=== PATIENT | female | born 1980 | race American Indian/Alaskan Native ===

== ENCOUNTER 2017-03-30 23:53 | Emergency (ER) | payer MEDICARE ==
[2017-03-31 02:25] LABS: Basophils % (Auto) 0.7 % (0.0-1.8); Eosinophils % (Auto) 0.9 % (0.0-4.3); Hematocrit 33.7 % (30.3-42.9); Hemoglobin 11.4 gm/dl (10.1-14.3); Mean Corpuscular HGB Conc 34 % (30-34); Mean Corpuscular Hemoglobin 28 pg (28-32); Mean Corpuscular Volume 84 fl (79-97); Platelet Count 224 K/mm3 (140-440); Red Cell Distribution Width 14.6 % (13.2-15.2); White Blood Count 7.1 K/mm3 (4.5-11.0)
[2017-03-31 02:45] LABS: Anion Gap 21 mmol/L; BUN/Creatinine Ratio 21.25; Blood Urea Nitrogen 17 mg/dL (7-17); Calcium 8.5 mg/dL (8.4-10.2); Carbon Dioxide 24 mmol/L (22-30); Glucose 125 mg/dL (65-100); Sodium 129 mmol/L (137-145)
[2017-03-31] MEDS ORDERED: K-DUR PO ONE (03:14)
[2017-03-31 04:03] LABS: Urine Drugs of Abuse Note Disclamer
[2017-03-31 04:25] LABS: Bilirubin,Urine NEG (Negative); Blood,Urine LG (Negative); Ketones,Urine NEG (Negative); Leukocyte Esterase,Urine NEG (Negative); Nitrite,Urine NEG (Negative); Protein,Urine <15 mg/dL mg/dL (Negative); Urobilinogen,Urine < 2.0 mg/dL (<2.0)
[2017-03-31 04:41] LABS: RBC,Urine < 1.0 /HPF (0.0-6.0)
[2017-03-31 04:46] LABS: Magnesium 1.6 mg/dL (1.7-2.3)
[2017-03-31] MEDS ORDERED: MAGNESIUM SULFATE 2GM/50ML 2 GM/50 ML BAG IV ONE (06:43)
--- NOTE | 2017-03-31 06:59 | Emergency Department Report ---
HPI - General Chief Complaint: Psych Time Seen by Provider: 03/31/17 06:42 - HPI HPI: Room 17 The patient is a 36-year-old female presenting with a chief complaint of psychosis. The patient is a poor historian and exhibits tangential speaking at times inappropriate responses at others. Patient states she came to the hospital because she was trying to get away from the house. Patient denies suicidal or homicidal ideation. Patient denies auditory or visual hallucinations Location: Mental state Duration: Unknown Quality: Disorganized Severity: Moderate Modifying factors: [see above] Context: [see above] Mode of transportation: [not driving] ED Past Medical Hx - Past Medical History Previous Medical History?: No Hx Congestive Heart Failure: Yes Hx Psychiatric Treatment: Yes (psychosis) - Surgical History Past Surgical History?: No Additional Surgical History: Oral surgery - Family History Family history: no significant - Social History Smoking Status: Current Every Day Smoker Substance Use Type: Alcohol, Cocaine ED Review of Systems ROS: Stated complaint: BLEEDING Other details as noted in HPI Comment: All other systems reviewed and negative Constitutional: denies: chills, fever Eyes: denies: eye pain, eye discharge, vision change ENT: denies: ear pain, throat pain Respiratory: denies: cough, shortness of breath, wheezing Cardiovascular: denies: chest pain, palpitations Endocrine: no symptoms reported Gastrointestinal: denies: abdominal pain, nausea, diarrhea Genitourinary: denies: urgency, dysuria, discharge Musculoskeletal: denies: back pain, joint swelling, arthralgia Skin: denies: rash, lesions Neurological: denies: headache, weakness, paresthesias Psychiatric: denies: auditory hallucinations, visual hallucinations, homicidal thoughts, suicidal thoughts Hematological/Lymphatic: denies: easy bleeding, easy bruising Physical Exam - Physical Exam Vital Signs: Vital Signs 03/31/17 00:12 Temperature 98.2 F Pulse Rate 88 Respiratory 18 Rate Blood Pressure 132/80 O2 Sat by Pulse 99 Oximetry Physical Exam: GENERAL: The patient is well-developed well-nourished female sleeping on stretcher not appearing to be in acute distress.. Easily awakened HEENT: Normocephalic. Atraumatic. Extraocular motions are intact. Patient has moist mucous membranes. NECK: Supple. Trachea midline CHEST/LUNGS: Clear to auscultation. There is no respiratory distress noted. HEART/CARDIOVASCULAR: Regular. There is no tachycardia. There is no gallop rub or murmur. ABDOMEN: Abdomen is soft, nontender. Patient has normal bowel sounds. There is no abdominal distention. SKIN: There is no rash. There is no edema. There is no diaphoresis. NEURO: The patient is awake and alert. The patient is cooperative. The patient has normal speech. Moves all extremities well MUSCULOSKELETAL: There is no evidence of acute injury. ED Course Vital Signs 03/31/17 00:12 Temperature 98.2 F Pulse Rate 88 Respiratory 18 Rate Blood Pressure 132/80 O2 Sat by Pulse 99 Oximetry ED Medical Decision Making - Lab Data Result diagrams: 03/31/17 02:11 03/31/17 02:11 Laboratory Tests 03/31/17 03/31/17 03/31/17 02:11 02:11 02:11 WBC RBC Hgb Hct MCV MCH MCHC RDW Plt Count Lymph % (Auto) [place] % (Auto) Eos % (Auto) Baso % (Auto) Lymph # [place] # Eos # Baso # Seg Neutrophils % Seg Neutrophils # Sodium 129 L Potassium 3.0 L Chloride 87.0 L Carbon Dioxide 24 Anion Gap 21 BUN 17 Creatinine 0.8 Estimated GFR > 60 BUN/Creatinine Ratio 21.25 Glucose 125 H Calcium 8.5 Magnesium Total Creatine Kinase HCG, Qual Negative Urine Color Urine Turbidity Urine pH Ur Specific Radiant Urine Protein Urine Glucose (UA) Urine Ketones Urine Blood Urine Nitrite Urine Bilirubin Urine Urobilinogen Ur Leukocyte Esterase Urine WBC (Auto) Urine RBC (Auto) U Epithel Cells (Auto) Amorphous Crystals Salicylates Urine Opiates Screen Urine Methadone Screen Acetaminophen Ur Barbiturates Screen Ur Phencyclidine Scrn Ur Amphetamines Screen U Benzodiazepines Scrn Urine Cocaine Screen U Marijuana (THC) Screen Drugs of Abuse Note Plasma/Serum Alcohol < 0.01 03/31/17 03/31/17 03/31/17 02:11 02:11 02:11 WBC 7.1 RBC 4.00 Hgb 11.4 Hct 33.7 MCV 84 MCH 28 MCHC 34 RDW 14.6 Plt Count 224 Lymph % (Auto) 30.8 [place] % (Auto) 10.0 H Eos % (Auto) 0.9 Baso % (Auto) 0.7 Lymph # 2.2 [place] # 0.7 Eos # 0.1 Baso # 0.0 Seg Neutrophils % 57.6 Seg Neutrophils # 4.1 Sodium Potassium Chloride Carbon Dioxide Anion Gap BUN Creatinine Estimated GFR BUN/Creatinine Ratio Glucose Calcium Magnesium 1.60 L Total Creatine Kinase 808 H HCG, Qual Urine Color Urine Turbidity Urine pH Ur Specific Radiant Urine Protein Urine Glucose (UA) Urine Ketones Urine Blood Urine Nitrite Urine Bilirubin Urine Urobilinogen Ur Leukocyte Esterase Urine WBC (Auto) Urine RBC (Auto) U Epithel Cells (Auto) Amorphous Crystals Salicylates < 0.3 L Urine Opiates Screen Urine Methadone Screen Acetaminophen Ur Barbiturates Screen Ur Phencyclidine Scrn Ur Amphetamines Screen U Benzodiazepines Scrn Urine Cocaine Screen U Marijuana (THC) Screen Drugs of Abuse Note Plasma/Serum Alcohol 03/31/17 03/31/17 03/31/17 02:11 03:58 03:58 WBC RBC Hgb Hct MCV MCH MCHC RDW Plt Count Lymph % (Auto) [place] % (Auto) Eos % (Auto) Baso % (Auto) Lymph # [place] # Eos # Baso # Seg Neutrophils % Seg Neutrophils # Sodium Potassium Chloride Carbon Dioxide Anion Gap BUN Creatinine Estimated GFR BUN/Creatinine Ratio Glucose Calcium Magnesium Total Creatine Kinase HCG, Qual Urine Color Yellow Urine Turbidity Clear Urine pH 6.0 Ur Specific Radiant 1.009 Urine Protein <15 mg/dl Urine Glucose (UA) Neg Urine Ketones Neg Urine Blood Lg Urine Nitrite Neg Urine Bilirubin Neg Urine Urobilinogen < 2.0 Ur Leukocyte Esterase Neg Urine WBC (Auto) 1.0 Urine RBC (Auto) < 1.0 U Epithel Cells (Auto) 3.0 Amorphous Crystals 1+ Salicylates Urine Opiates Screen Presumptive negative Urine Methadone Screen Presumptive negative Acetaminophen < 15.0 Ur Barbiturates Screen Presumptive negative Ur Phencyclidine Scrn Presumptive negative Ur Amphetamines Screen Presumptive negative U Benzodiazepines Scrn Presumptive negative Urine Cocaine Screen Presumptive positive U Marijuana (THC) Screen Presumptive negative Drugs of Abuse Note Disclamer Plasma/Serum Alcohol - Differential Diagnosis psychosis, cocaine abuse Critical care attestation.: If time is entered above; I have spent that time in minutes in the direct care of this critically ill patient, excluding procedure time. ED Disposition Clinical Impression: Cocaine abuse, Hypokalemia, Hypomagnesemia Disposition: DC/TX-65 PSY HOSP/PSY UNIT Is pt being admited?: No Does the pt Need Aspirin: No Condition: Stable Referrals: PRIMARY CARE, [Primary Care Provider] - 3-5 Days
[2017-03-31 09:17] VITALS: BP 115/63
--- NOTE | 2017-03-31 13:41 | Consultation ---
History of Present Illness - Reason for Consult Consult date: 03/31/17 Reason for consult: Mental Health Evaluation Requesting physician: DELLA POWELL - Chief Complaint Chief complaint: "Hello" - History of Present Psychiatric Illness The patient is a 36-year-old female presenting with a chief complaint of psychosis. Today patient is calm with a tangential thought process during the assessment. She had to be redirected multiple times during our conversation. She was rambling about being the face of money ([id number]) and mentioned she was in the process of starting a war with another country. She could not elaborate about the things she was saying. She denies SI/HI's, but would not confirm or deny AVH's. She is a poor historian at this time. Medications and Allergies Allergies Allergy/AdvReac Type Severity Reaction Status Date / Time No Known Allergies Allergy Unverified 03/31/17 00:12 Past psychiatric history - Past Medical History Past Medical History: other (Unable to obtain) Past Surgical History: Other (Unable to obtain) - past Psychiatric treatment and history Psych: Psychosis psychiatric treatment history: Inpatient at [facility]. Unable to obtain a [facility] psy hx. - Social History Social history: Mental Status Exam - Vital signs Last Vital Signs Temp 98.6 F 03/31/17 09:09 Pulse 73 03/31/17 09:09 Resp 20 03/31/17 09:17 BP 115/63 03/31/17 09:09 Pulse Ox 100 03/31/17 09:17 - Exam Narrative exam: ROS: (+) psychosis MSE: Appearance: calm Behavior: regular eye contact Speech: regular rate and tone Mood: "okay" Affect: labile Thought Process: tangential Thought Content: denies SI/HI's Motor Activity: sitting up in bed Cognition: A/Ox 3 Insight: poor Judgment: poor Results Result Diagrams: 03/31/17 02:11 03/31/17 02:11 Abnormal lab results 03/31/17 03/31/17 03/31/17 Range/Units 02:11 02:11 02:11 [place] % (Auto) 10.0 H (0.0-7.3) % Sodium 129 L (137-145) mmol/L Potassium 3.0 L (3.6-5.0) mmol/L Chloride 87.0 L (98-107) mmol/L Glucose 125 H (65-100) mg/dL Magnesium 1.60 L (1.7-2.3) mg/dL Total Creatine Kinase 808 H (30-135) units/L Salicylates (2.8-20.0) mg/dL 03/31/17 Range/Units 02:11 [place] % (Auto) (0.0-7.3) % Sodium (137-145) mmol/L Potassium (3.6-5.0) mmol/L Chloride (98-107) mmol/L Glucose (65-100) mg/dL Magnesium (1.7-2.3) mg/dL Total Creatine Kinase (30-135) units/L Salicylates < 0.3 L (2.8-20.0) mg/dL All other labs normal. Assessment and Plan Assessment and plan: Impression: Historical Dx: Schizophrenia. Active psychosis. Today patient is calm with a tangential thought process during the assessment. DDx: R/O Bipolar, Schizoaffective DO Recommendation/Plan: Continue 1013 with placement to [facility] today pending transport time.
[2017-03-31] MEDS ORDERED: MAG-OX PO SCH (15:00)
== END 2017-03-31 14:19 ==
LOC: EDSEX → ED 23:53 → EEVIPCON 23:53 → ED 03-31 14:19
DX: E87.6 Hypokalemia (principal); E83.42 Hypomagnesemia; F14.10 Cocaine abuse, uncomplicated; I50.9 Heart failure, unspecified; F17.200 Nicotine dependence, unspecified, uncomplicated
CPT/HCPCS: 36415; 80048; 80307; 81001; 82550; 83735; 84703; 85025; 99285; G0480; 80320

== ENCOUNTER 2017-09-01 10:00 | Emergency (ER) | payer MEDICARE ==
[2017-09-01 11:28] LABS: Basophils % (Auto) 0.6 % (0.0-1.8); Eosinophils # (Auto) 0.2 K/mm3 (0.0-0.4); Eosinophils % (Auto) 2.7 % (0.0-4.3); Hematocrit 37.3 % (30.3-42.9); Lymphocytes # (Auto) 2.4 K/mm3 (1.2-5.4); Lymphocytes % (Auto) 43.7 % (13.4-35.0); Mean Corpuscular HGB Conc 32 % (30-34); Mean Corpuscular Hemoglobin 28 pg (28-32); Mean Corpuscular Volume 86 fl (79-97); Monocytes # (Auto) 0.3 K/mm3 (0.0-0.8); Monocytes % (Auto) 5.7 % (0.0-7.3); Red Blood Count 4.33 M/mm3 (3.65-5.03); Red Cell Distribution Width 16.8 % (13.2-15.2)
[2017-09-01 11:42] LABS: BUN/Creatinine Ratio 24; Blood Urea Nitrogen 12 mg/dL (7-17); Calcium 8.9 mg/dL (8.4-10.2); Hemolysis Index 25
--- NOTE | 2017-09-01 12:22 | XRay Report ---
ROUTINE CHEST, TWO VIEWS: HISTORY: Shortness of breath. The trachea, heart, mediastinal contour, lung kowalski and bony thorax are unremarkable. IMPRESSION: Unremarkable chest x-ray.
[2017-09-01 12:48] LABS: Platelet Count 137 K/mm3 (140-440)
[2017-09-01] MEDS ORDERED: NITROSTAT SL PRN (23:56)
[2017-09-01] MEDS ORDERED: TYLENOL PO ONE (23:56)
--- NOTE | 2017-09-01 23:58 | Emergency Department Report ---
ED General Adult HPI - General Chief complaint: Dyspnea/Respdistress Stated complaint: CHEST TIGHT, FEET SWELLING Time Seen by Provider: 09/01/17 23:50 Source: patient, RN notes reviewed Mode of arrival: Ambulatory Limitations: No Limitations - History of Present Illness Initial comments: This is a 37-year-old female, the patient is previously unknown to this provider , patient has a past medical history of psychiatric disease, unintentional weight gain on Seroquel. Patient presents to the ER with complaint of lower extremity swelling, reports history of chronic edema. Patient also endorses central chest tightness, and states tightness has been present for 3-4 days. The tightness does not radiate to the back, arms or neck. There is no vomiting, there is no diaphoresis. She also describes "heaviness in my breathing", which she attributes to her unintentional weight gain secondary to her psychiatric medications. There is no recent travel, patient does not take oral contraceptives, she reports that she is not , and she denies pulmonary embolus/DVT risk factors. She denies aspirin use, cocaine use. Patient also endorses lower extremity pain and swelling, which is intermittent, it does not radiate anywhere, it increases with palpation, decreases with rest. -: Gradual Location: chest, left, right, lower extremity Radiation: non-radiation Quality: burning, aching Consistency: intermittent Improves with: rest Worsens with: movement Associated Symptoms: chest pain, shortness of breath. denies: confusion, cough , diaphoresis, fever/chills, headaches, loss of appetite, malaise, nausea/ vomiting, rash, seizure, syncope, weakness - Related Data Previous Rx's Medication Instructions Recorded Last Taken Type Acetaminophen [Tylenol Arthritis] 650 mg PO Q6HR PRN #30 tablet.er 09/02/17 Unknown Rx Aspirin [Aspirin BABY CHEW TAB] 81 mg PO QDAY #30 tab.chew 09/02/17 Unknown Rx Furosemide [Lasix] 20 mg PO QDAY #30 tablet 09/02/17 Unknown Rx Allergies Allergy/AdvReac Type Severity Reaction Status Date / Time Penicillins Allergy Swelling Verified 09/24/13 21:17 ED Review of Systems ROS: Stated complaint: CHEST TIGHT, FEET SWELLING Other details as noted in HPI ED Past Medical Hx - Past Medical History Previous Medical History?: Yes Hx Congestive Heart Failure: Yes Hx Psychiatric Treatment: Yes (psychosis) Additional medical history: bipolar - Surgical History Past Surgical History?: Yes Additional Surgical History: Oral surgery - Social History Smoking Status: Current Every Day Smoker Substance Use Type: Alcohol, Marijuana, Prescribed, Tranquilizers - Medications Home Medications: Home Medications Medication Instructions Recorded Confirmed Last Taken Type Acetaminophen [Tylenol Arthritis] 650 mg PO Q6HR PRN #30 tablet.er 09/02/17 Unknown Rx Aspirin [Aspirin BABY CHEW TAB] 81 mg PO QDAY #30 tab.chew 09/02/17 Unknown Rx Furosemide [Lasix] 20 mg PO QDAY #30 tablet 09/02/17 Unknown Rx ED Physical Exam - General Limitations: No Limitations General appearance: alert, in no apparent distress, obese - Head Head exam: Present: atraumatic, normocephalic - Eye Eye exam: Present: normal appearance, EOMI. Absent: nystagmus - ENT ENT exam: Present: normal exam, normal orophraynx, mucous membranes moist, normal external ear exam - Neck Neck exam: Present: normal inspection, full ROM - Respiratory Respiratory exam: Present: normal lung sounds bilaterally, chest wall tenderness. Absent: respiratory distress - Cardiovascular Cardiovascular Exam: Present: regular rate, normal rhythm, normal heart sounds. Absent: bradycardia, tachycardia, irregular rhythm, systolic murmur, diastolic murmur, rubs, gallop - GI/Abdominal GI/Abdominal exam: Present: soft, normal bowel sounds. Absent: distended, tenderness, guarding, rebound, rigid, pulsatile mass - Extremities Exam Extremities exam: Present: normal inspection, full ROM, normal capillary refill , pedal edema, calf tenderness, other (2+ pitting edema in the bilateral lower extremities) - Back Exam Back exam: Present: normal inspection, full ROM. Absent: tenderness, CVA tenderness (R), paraspinal tenderness, vertebral tenderness - Neurological Exam Neurological exam: Present: alert, oriented X3, CN II-XII intact, normal gait, other (Extraocular movements intact. Tongue midline. No facial droop. Facial sensation intact to light touch in the V1, V2, V3 distribution bilaterally. 5 and 5 strength in 4 extremities.. Sensation is intact to light touch in 4 extremities.). Absent: motor sensory deficit - Psychiatric Psychiatric exam: Present: normal affect, normal mood - Skin Skin exam: Present: warm, dry, intact, normal color. Absent: rash ED Course Vital Signs 09/01/17 09/02/17 10:54 00:00 Temperature 97.7 F 98.3 F Pulse Rate 95 H 89 Respiratory 20 16 Rate Blood Pressure 128/78 Blood Pressure 112/61 [Right] O2 Sat by Pulse 98 98 Oximetry - Reevaluation(s) Reevaluation #1: 09/02/17 01:02 Differential diagnosis, including but not limited to: Dependent edema, DVT, pulmonary embolus, acute coronary syndrome, pneumonia, costochondritis Assessment and plan: 37-year-old female with probable dependent edema, and atypical chest pain, EKG morphologically unremarkable 2, low risk by RANJAN score , low risk by heart score, troponin negative 1, symptoms present for days, as per the [employer] [place] [employer] clinical policy, myocardial infarction may be excluded with 1 set of cardiac enzymes, if symptoms have been present for greater than 8 hours. No pulmonary embolus or DVT risk factors, low risk by well's criteria, perc negative D-dimer is pending, x-ray of the chest is negative, chest x-ray is clear, patient does not appear to be volume overloaded. Awaiting d-dimer, assuming negative, will discharged to follow up with outpatient cardiology with Nina. 01:02 09/02/17 01:04 Reevaluation #2: 09/02/17 01:09 Patient describes her shortness of breath as secondary to weight gain from her psychiatric medication, she reports no change in exercise tolerance. Reevaluation #3: 09/02/17 01:25 Vital signs stable. Patient resting comfortably. Troponin negative. D-dimer negative. Patient will be discharged. ED Medical Decision Making - Lab Data Result diagrams: 09/01/17 11:24 09/01/17 11:24 Vital Signs 09/01/17 09/02/17 10:54 00:00 Temperature 97.7 F 98.3 F Pulse Rate 95 H 89 Respiratory 20 16 Rate Blood Pressure 128/78 Blood Pressure 112/61 [Right] O2 Sat by Pulse 98 98 Oximetry Labs 09/01/17 09/01/17 09/01/17 00:20 11:24 11:24 WBC 5.5 RBC 4.33 Hgb 12.0 Hct 37.3 MCV 86 MCH 28 MCHC 32 RDW 16.8 H Plt Count 137 L Lymph % (Auto) 43.7 H [place] % (Auto) 5.7 Eos % (Auto) 2.7 Baso % (Auto) 0.6 Lymph # 2.4 [place] # 0.3 Eos # 0.2 Baso # 0.0 Seg Neutrophils % 47.3 Seg Neutrophils # 2.6 PT 12.8 INR 0.92 APTT 28.9 Sodium 134 L Potassium 4.7 Chloride 98.7 Carbon Dioxide 23 Anion Gap 17 BUN 12 Creatinine 0.5 L Estimated GFR > 60 BUN/Creatinine Ratio 24 Glucose 88 Calcium 8.9 - EKG Data -: EKG Interpreted by Me - EKG Data 09/02/17 01:06 EKG #1 demonstrates normal sinus, 99 bpm, normal axis, normal intervals, morphologically consistent with ST elevation myocardial infarction, EKG #2 also appears to be unchanged. - Radiology Data Radiology results: report reviewed, image reviewed X-ray of the chest is negative for acute disease Critical care attestation.: If time is entered above; I have spent that time in minutes in the direct care of this critically ill patient, excluding procedure time. ED Disposition Clinical Impression: Leg edema, Chest tightness Disposition: - TO HOME OR SELFCARE Is pt being admited?: No Does the pt Need Aspirin: No Condition: Stable Instructions: Leg Edema (ED) Additional Instructions: Rest and avoid heavy lifting. Avoid strenuous physical activity. Take the medications as directed. Follow-up with any illicit cardiology practices within the next 7-10 days. ER Runaway with new pain, worsening pain, migration of pain, fevers, chills, lethargy, irritability, projectile vomiting, change in mental status, confusion, inability to tolerate liquid feeds. Prescriptions: Acetaminophen [Tylenol Arthritis] 650 mg PO Q6HR PRN #30 tablet.er PRN Reason: Pain Aspirin [Aspirin BABY CHEW TAB] 81 mg PO QDAY #30 tab.chew Furosemide [Lasix] 20 mg PO QDAY #30 tablet Referrals: PRIMARY CARE, [Primary Care Provider] - 3-5 Days [facility] [Provider Group] - 3-5 Days [facility] [Provider Group] - 3-5 Days
--- NOTE | 2017-09-02 00:52 | XRay Report ---
FINAL REPORT EXAM: XR CHEST ROUTINE 2V HISTORY: cp sob COMPARISON: None available. FINDINGS:: Frontal and lateral views of the chest obtained. Cardiac silhouette is within normal limits. No focal consolidation or effusion. No pneumothorax. Visualized bony thorax is grossly intact. IMPRESSION:: No acute findings.
[2017-09-02 01:04] LABS: INR 0.92 (0.87-1.13); Partial Thromboplastin Time 28.9 Sec. (24.2-36.6)
[2017-09-02 01:41] VITALS: BP 112/70
== END 2017-09-02 02:10 | disposition home or self-care (01) ==
LOC: ED 10:00
DX: R60.0 Localized edema (principal); R07.89 Other chest pain; F17.200 Nicotine dependence, unspecified, uncomplicated; F12.10 Cannabis abuse, uncomplicated
CPT/HCPCS: 36415; 71046; 80048; 84484; 84702; 85025; 85379; 85610; 85730; 93005; 93010; 99284

== ENCOUNTER 2021-11-05 09:17 | Emergency (ER) | payer MEDICARE ==
[2021-11-05 09:26] VITALS: BP 132/81
--- NOTE | 2021-11-05 09:51 | Emergency Department Report ---
Minor Respiratory - HPI Chief Complaint: Upper Respiratory Infection Stated Complaint: COLD SYMPTOMS Time Seen by Provider: 11/05/21 09:49 Duration: 1 WK AGO Severity: mild Minor Respiratory: Yes Rhinorrhea, Yes Able to Tolerate Fluids, Yes Cough, No Sore Throat, No Ear Pain, No Sick Contacts, No Hemoptysis, No Chest Pain, No Shortness of Breath, No Fever Other History: 41-year-old female with a past medical history of schizoaffective disorder and mood disorder presents from [facility] with complaints of URI symptoms. Patient states that her cold started 1 week ago. She reports yellow rhinorrhea with nasal congestion and postnasal drainage and productive cough. She states that she had a negative COVID 19 test last week Thursday. She also saw one of the primary care doctors and she was started on Zithromax, but she has not gotten it filled or started taking it as yet. Patient states that a month ago she did get 1 dose of COVID-19 vaccine. She does not know which of the vaccine she received. She reports no chest pain, shortness of breath, wheezing, fever or any additional symptoms. ED Review of Systems ROS: Stated complaint: COLD SYMPTOMS Other details as noted in HPI Comment: All other systems reviewed and negative Constitutional: denies: chills, fever Eyes: denies: eye pain, eye discharge, vision change ENT: denies: ear pain, throat pain Respiratory: cough. denies: shortness of breath, SOB with exertion, SOB at rest, wheezing Cardiovascular: denies: chest pain, palpitations Gastrointestinal: denies: abdominal pain, nausea, vomiting, diarrhea, constipation, hematemesis, melena, hematochezia Genitourinary: denies: urgency, dysuria, frequency, hematuria, discharge, abnormal menses, dyspareunia Musculoskeletal: denies: back pain, joint swelling, arthralgia Skin: denies: rash, lesions, change in color, change in hair/nails, pruritus Neurological: denies: headache, weakness, paresthesias, confusion, abnormal gait, vertigo Psychiatric: denies: anxiety, depression, auditory hallucinations, visual hallucinations, homicidal thoughts, suicidal thoughts Hematological/Lymphatic: denies: easy bleeding, easy bruising, swollen glands ED Past Medical Hx - Past Medical History Previous Medical History?: Yes Hx Congestive Heart Failure: Yes Hx Psychiatric Treatment: Yes (psychosis) Additional medical history: bipolar - Surgical History Past Surgical History?: Yes Additional Surgical History: Oral surgery - Social History Smoking Status: Current Every Day Smoker Substance Use Type: Alcohol, Marijuana, Prescribed, Tranquilizers - Medications Home Medications: Home Medications Medication Instructions Recorded Confirmed Last Taken Type Acetaminophen [Tylenol Arthritis] 650 mg PO Q6HR PRN #30 tablet.er 09/02/17 Unknown Rx Aspirin [Aspirin BABY CHEW TAB] 81 mg PO QDAY #30 tab.chew 09/02/17 Unknown Rx Furosemide [Lasix] 20 mg PO QDAY #30 tablet 09/02/17 Unknown Rx Fexofenadine HCl [Lora Allergy] 180 mg PO DAILY #30 tab 11/05/21 Unknown Rx Fluticasone [Flonase] 2 spray NS QDAY #1 bottle 11/05/21 Unknown Rx Minor Respiratory Exam - Exam General: Vital signs noted. No distress. Alert and acting appropriately. HEENT: No Pharyngeal Erythema, No Pharyngeal Exudates, No Moist Mucous Membranes, No Rhinorrhea, No Conjuctival Injection, No Frontal Tenderness, No Maxillary Tenderness Ear: Neither EAC Pain, Neither EAC Discharge Neck: Yes Supple, No Adenopathy Lungs: Yes Good Air Exchange, No Wheezes, No Ronchi, No Stridor, No Cough, No Labored Respirations, No Retractions, No Use of Accessory Muscles, No Other Abnormal Lung Sounds Heart: Yes Regular, No Murmur Abdomen: Yes Normal Bowel Sounds, No Tenderness, No Peritoneal Signs Skin: No Rash, No Edema Neurologic: Alert and oriented, no deficits. Musculoskeletal: Unremarkable. ED Course Vital Signs 11/05/21 09:25 Temperature 98.7 F Pulse Rate 90 Respiratory 18 Rate Blood Pressure 132/81 O2 Sat by Pulse 97 Oximetry ED Medical Decision Making - Medical Decision Making The patient is resting comfortably, is alert and in no distress. The patient has normal mental status and is neurologically intact. The patient appears well and and there is no significant dehydration. There is no respiratory distress and no signs of systemic toxicity. Chest is clear to auscultation. The history, exam, diagnostic testing and current condition do not demonstrate an infectious process such as meningitis, severe pneumonia, retropharyngeal absces s, epiglottitis, sepsis or other serious bacterial infection requiring testing, treatment, consultation or admission at this time. The vital signs have been stable. Informed patient she should start taking the Zithromax that the symptoms likely related to the sinus infection. We will also give her prescription for Flonase and a antihistamine. The patient's condition is stable and appropriate for discharge. The patient will pursue further outpatient evaluation with the primary care physician or other designated or consulting physician as indicated on the discharge instructions. Critical care attestation.: If time is entered above; I have spent that time in minutes in the direct care of this critically ill patient, excluding procedure time. ED Disposition Clinical Impression: Acute sinusitis Disposition: 01 HOME / SELF CARE / HOMELESS Is pt being admited?: No Does the pt Need Aspirin: No Condition: Stable Instructions: Sinusitis, Adult, [id number] Additional Instructions: I recommend that you get the Zithromax filled and start taking it. Use the Flonase as prescribed as well as the Lora. Follow-up with your primary care doctor. Return to the ER if your symptoms changes or worsens in any way. Prescriptions: Fexofenadine HCl [Lora Allergy] 180 mg PO DAILY #30 tab Fluticasone [Flonase] 2 spray NS QDAY #1 bottle Referrals: PRIMARY CARE, [Primary Care Provider] - 3-5 Days Time of Disposition: 09:51
== END 2021-11-05 10:21 | disposition home or self-care (01) ==
LOC: ED 09:17
DX: J01.90 Acute sinusitis, unspecified (principal); F17.200 Nicotine dependence, unspecified, uncomplicated; F10.20 Alcohol dependence, uncomplicated; F12.90 Cannabis use, unspecified, uncomplicated
CPT/HCPCS: 99282